=== PATIENT | female | born 1990 | race Two or more races ===

== ENCOUNTER 2019-11-09 21:27 | Emergency (ER) | payer SELFPAY ==
[~2019-11-09] VITALS: Ht 165.1 cm; Wt 70.0 kg
[~2019-11-09 21:27] MED LIST: PNV1TABL25 PO
--- NOTE | 2019-11-09 21:57 | PHYS DOC ---
Past Medical History Past Medical History: No Pertinent History Smoking Status: Unknown if ever smoked Alcohol Use: None Adult General Chief Complaint Chief Complaint: FLU SYMPTOM HPI HPI Patient is a 29 year old Georgian-speaking female who presents to the ER with complaint of left sided abdominal pain that is mostly in the upper quadrant that has been ongoing intermittently since Friday and is currently rated 8/10. Her pain is worse with sitting. No nausea vomiting diarrhea or constipation. She reports fevers and body aches otherwise. No sick contacts, recent travel, exposure to anyone with coronavirus. No history of intra- abdominal problems. Last menstrual cycle was approximately 3 weeks ago. Review of Systems Review of Systems All other systems were reviewed and found to be within normal limits, except as documented in this note. Current Medications Current Medications Current Medications Medications (Trade) Dose Ordered Sig/David Start Time Stop Time Status Last Admin Dose Admin Ceftriaxone Sodium (Rocephin) 1 gm 1X ONCE 11/09/19 22:30 11/09/19 22:31 DC 11/09/19 22:26 1 GM Ciprofloxacin (Cipro) 500 mg 1X ONCE 11/09/19 23:00 11/09/19 23:01 UNV Fentanyl Citrate (Fentanyl 2ml Vial) 50 mcg 1X ONCE 11/09/19 22:15 11/09/19 22:16 DC 11/09/19 22:15 50 MCG Ondansetron HCl (Zofran) 4 mg 1X ONCE 11/09/19 22:15 11/09/19 22:16 DC 11/09/19 22:10 4 MG Sodium Chloride 1,000 ml @ 1,000 mls/hr 1X ONCE 11/09/19 23:00 11/09/19 23:59 UNV Allergies Allergies Allergies Coded Allergies Type Severity Reaction Last Updated Verified No Known Drug Allergies 07/14/16 No Physical Exam Physical Exam Constitutional: Well developed, well nourished, appears to not feel well, non- toxic appearance. [] HENT: Normocephalic, atraumatic, bilateral external ears normal, oropharynx moist, no oral exudates, nose normal. [] Eyes: PERRLA, EOMI, conjunctiva normal, no discharge. [] Neck: Normal range of motion, no tenderness, supple, no stridor. [] Cardiovascular:Heart rate regular rhythm, no murmur [] Lungs & Thorax: Bilateral breath sounds clear to auscultation [] Abdomen: Bowel sounds normal, soft, LUQ TTP, no masses, no pulsatile masses. [] Skin: Warm, dry, no erythema, no rash. [] Back: No tenderness, no CVA tenderness. [] Extremities: No tenderness, no cyanosis, no clubbing, ROM intact, no edema. [] Neurologic: Alert and oriented X 3, normal motor function, normal sensory function, no focal deficits noted. [] Psychologic: Affect normal, judgement normal, mood normal. [] Current Patient Data Vital Signs Vital Signs Date Time Temp Pulse Resp B/P (MAP) Pulse Ox O2 Delivery O2 Flow Rate FiO2 11/09/19 22:36 100.0 104 18 138/68 (91) 98 100.0 11/09/19 22:15 Room Air Lab Values Laboratory Tests Test 11/09/19 21:55 11/09/19 22:00 Urine Collection Type Void Urine Color Chrissie Urine Clarity Cloudy Urine pH 6.0 (<5.0-8.0) Urine Specific [place] 1.025 (1.000-1.030) Urine Protein 100 mg/dL (NEG-TRACE) Urine Glucose (UA) Negative mg/dL (NEG) Urine Ketones (Stick) 40 mg/dL (NEG) Urine Blood Large (NEG) Urine Nitrite Positive (NEG) Urine Bilirubin Small (NEG) Urine Urobilinogen Dipstick 1.0 mg/dL (0.2 mg/dL) Urine Leukocyte Esterase Moderate (NEG) Urine RBC 1-2 /HPF (0-2) Urine WBC 20-40 /HPF (0-4) Urine Squamous Epithelial Cells Mod /LPF Urine Bacteria Many /HPF (0-FEW) Urine Mucus Marked /LPF Influenza Type A Antigen Negative (NEGATIVE) Influenza Type B Antigen Negative (NEGATIVE) White Blood Count 14.7 x10^3/uL (4.0-11.0) H Red Blood Count 4.29 x10^6/uL (3.50-5.40) Hemoglobin 14.2 g/dL (12.0-15.5) Hematocrit 40.2 % (36.0-47.0) Mean Corpuscular Volume 94 fL (79-100) Mean Corpuscular Hemoglobin 33 pg (25-35) Mean Corpuscular Hemoglobin Concent 35 g/dL (31-37) Red Cell Distribution Width 14.3 % (11.5-14.5) Platelet Count 259 x10^3/uL (140-400) Neutrophils (%) (Auto) 88 % (31-73) H Lymphocytes (%) (Auto) 5 % (24-48) L Monocytes (%) (Auto) 8 % (0-9) Eosinophils (%) (Auto) 0 % (0-3) Basophils (%) (Auto) 0 % (0-3) Neutrophils # (Auto) 12.9 x10^3/uL (1.8-7.7) H Lymphocytes # (Auto) 0.7 x10^3/uL (1.0-4.8) L Monocytes # (Auto) 1.1 x10^3/uL (0.0-1.1) Eosinophils # (Auto) 0.0 x10^3/uL (0.0-0.7) Basophils # (Auto) 0.0 x10^3/uL (0.0-0.2) Segmented Neutrophils % 83 % (35-66) H Band Neutrophils % 6 % (0-9) Lymphocytes % 6 % (24-48) L Monocytes % 4 % (0-10) Eosinophils % 1 % (0-5) Platelet Estimate Adequate (ADEQUATE) POC Urine HCG, Qualitative Hcg negative (Negative) Sodium Level 138 mmol/L (136-145) Potassium Level 3.5 mmol/L (3.5-5.1) Chloride Level 102 mmol/L (98-107) Carbon Dioxide Level 25 mmol/L (21-32) Anion Gap 11 (6-14) Blood Urea Nitrogen 8 mg/dL (7-20) Creatinine 0.8 mg/dL (0.6-1.0) Estimated GFR (Cockcroft-Gault) 83.7 BUN/Creatinine Ratio 10 (6-20) Glucose Level 114 mg/dL (70-99) H Calcium Level 9.2 mg/dL (8.5-10.1) Total Bilirubin Pending Aspartate Amino Transferase (AST) Pending Alanine Aminotransferase (ALT) Pending Alkaline Phosphatase Pending Total Protein Pending Albumin Pending Albumin/Globulin Ratio Pending Lipase Pending Laboratory Tests 11/09/19 22:00 Laboratory Tests 11/09/19 22:00 EKG EKG [] Radiology/Procedures Radiology/Procedures [] Course & Med Decision Making Course & Med Decision Making Pertinent Labs and Imaging studies reviewed. (See chart for details) This patient is seen for left upper quadrant abdominal pain with fever. Also some flulike symptoms. We will place an IV give IV fluids check labs and abdominal x-ray. Will also check for influenza. 2254: Patient's work-up reveals what appears to be pyelonephritis. She will given a total of 2 L of fluid, 1 g of Rocephin, and 500 mg of oral ciprofloxacin. The patient's renal function is normal so she will be discharged home with a prescription for Bactrim and ciprofloxacin. She is instructed to return to the ER in 48 hours if her symptoms are not improving. An photogeologist was used during my interaction with this patient and the patient voiced understanding. Naomy Disclaimer Naomy Disclaimer This electronic medical record was generated, in whole or in part, using a voice recognition dictation system. Departure Departure Impression: Primary Impression: Pyelonephritis Disposition: HOME, SELF-CARE Condition: IMPROVED Referrals: NO PCP (PCP) Patient Instructions: Pyelonephritis, Adult Additional Instructions: You may use tylenol and ibuprofen for fever and body aches. Scripts Ciprofloxacin Hcl (CIPROFLOXACIN HCL) 500 Mg Tablet 1 TAB PO BID, #20 TAB Prov: SANG WHITE DO 11/09/19 Sulfamethoxazole/Trimethoprim (BACTRIM DS TABLET) 1 Each Tablet 1 TAB PO BID for infection for 10 Days, #20 TAB Prov: SANG WHITE DO 11/09/19 SANG WHITE DO Nov 09, 2019 21:57
[2019-11-09 22:07] LABS: BILIRUBIN,URINE SMALL (NEG); CLARITY,URINE CLOUDY; COLOR,URINE AMBER; NITRITE,URINE POSITIVE (NEG); PROTEIN,URINE 100 mg/dL (NEG-TRACE)
[2019-11-09 22:14] LABS: BACTERIA,URINE MANY /HPF (0-FEW); SQUAMOUS EPITHELIAL CELL,UR MOD /LPF; WBC,URINE 20-40 /HPF (0-4)
[2019-11-09 22:15] LABS: BASO % 0 % (0-3); EOS % 0 % (0-3); HEMATOCRIT 40.2 % (36.0-47.0); HEMOGLOBIN 14.2 g/dL (12.0-15.5); LYMPH # 0.7 x10^3/uL (1.0-4.8); LYMPH % 5 % (24-48); MEAN CORPUSCULAR HEMOGLOBIN 33 pg (25-35); MEAN CORPUSCULAR HGB CONC 35 g/dL (31-37); MEAN CORPUSCULAR VOLUME 94 fL (79-100); MONO # 1.1 x10^3/uL (0.0-1.1); MONO % 8 % (0-9); NEUT # 12.9 x10^3/uL (1.8-7.7); NEUT % 88 % (31-73); PLATELET COUNT 259 x10^3/uL (140-400); RED BLOOD COUNT 4.29 x10^6/uL (3.50-5.40); RED CELL DISTRIBUTION WIDTH 14.3 % (11.5-14.5); WHITE BLOOD COUNT 14.7 x10^3/uL (4.0-11.0)
[2019-11-09] MEDS ORDERED: ONDANSETRON PF 4 MG/2 ML VIAL. IVP ONE (22:15)
[2019-11-09] MEDS ORDERED: fentaNYL PF VIAL 100 MCG/2 ML VIAL IVP ONE (22:15)
[2019-11-09] MEDS ORDERED: IV NORMAL SALINE 1000ML BAG 1,000 ML IV ONE ×2 (22:15→23:00)
[2019-11-09 22:20] LABS: INFLUENZA A PATIENT NEGATIVE (NEGATIVE); INFLUENZA B PATIENT NEGATIVE (NEGATIVE)
[2019-11-09] MEDS ORDERED: cefTRIAXone IV Push 1 GM VIAL. IVP ONE (22:30)
[2019-11-09 22:36] LABS: % BANDS 6 % (0-9); % EOS 1 % (0-5); % LYMPHS 6 % (24-48); % MONOS 4 % (0-10); % SEGS 83 % (35-66); PLT ESTIMATE ADEQUATE (ADEQUATE)
[2019-11-09 22:38] LABS: CALCIUM 9.2 mg/dL (8.5-10.1); CREATININE 0.8 mg/dL (0.6-1.0); GFR 83.7; POTASSIUM 3.5 mmol/L (3.5-5.1)
--- NOTE | 2019-11-09 22:42 | RAD ---
Abdominal Series dated 11/09/2019. No comparison available. Clinical Indication: Abdominal pain. Findings: Single upright PA view the chest shows normal heart and mediastinal contours. The lungs are clear without focal consolidation. Vascular interstitium is within normal limits. Flat and upright views of the abdomen show nondilated gas filled loops of bowel. No air-fluid level on the upright view. No abnormal calcifications are identified. There is no evidence of pneumoperitoneum. Moderate amount stool throughout the colon. Impression chest: No acute radiographic abnormality. Impression abdomen: Non-obstructive bowel gas pattern. Electronically signed by: Mendoza Jones MD (11/09/2019 10:39 PM) [id number]
[2019-11-09 22:56] LABS: ALBUMIN 3.6 g/dL (3.4-5.0); ALBUMIN/GLOBULIN RATIO 0.7 (1.0-1.7); TOTAL BILIRUBIN 0.7 mg/dL (0.2-1.0); TOTAL PROTEIN 8.5 g/dL (6.4-8.2)
[2019-11-09] MEDS ORDERED: SULF1TAB24 PO (22:57)
[2019-11-09] MEDS ORDERED: CIPR500T PO (22:57)
[2019-11-09] MEDS ORDERED: CIPROFLOXACIN HCL 250 MG TABLET. PO ONE (23:00)
[2019-11-10 00:05] VITALS: BP 114/68
== END 2019-11-10 00:10 | disposition home or self-care (01) ==
LOC: ER 21:27
DX: N12 Tubulo-interstitial nephritis, not specified as acute or chronic (principal)
CPT/HCPCS: 36415; 74022; 80053; 81001; 81025; 83690; 85007; 85025; 87086; 87804; 96374; 96375; 99285; J0696; J2405; J3010; J7030

== ENCOUNTER 2021-05-06 08:42 | Emergency (ER) | payer SELFPAY ==
[~2021-05-06] VITALS: Ht 152.4 cm; Wt 50.0 kg
[~2021-05-06 08:42] MED LIST changes: +CIPR500T2 PO; +SULF1TAB24 PO
[2021-05-06 08:50] VITALS: BP 124/77
--- NOTE | 2021-05-06 09:43 | PHYS DOC ---
Past Medical History Past Medical History: No Pertinent History Past Surgical History: No Surgical History Smoking Status: Never Smoker Alcohol Use: None General Adult EDM: Chief Complaint: VAGINAL BLEEDING HPI: HPI: Patient is a 31 year old Rh+ female at approximately 12 weeks 0 days gestational age by LMP (02/11/2021) who presents with vaginal bleeding/spotting since yesterday. She is following with the [facility] [place] [facility]. Has not had ultrasound confirmation of IUP for this . She has had 2 uneventful previous pregnancies. No issues with this so far. She has noticed bleeding just when she wipes after urination. She is not spontaneously bleeding in between. She has not passed any clots. She has had no pain or cramping. She did notice that she had some yellow discharge on and Friday, but has not had any since. No dysuria, urgency, frequency. Review of Systems: Review of Systems: Constitutional: Denies fever or chills. [] Eyes: Denies change in visual acuity. [] HENT: Denies nasal congestion or sore throat. [] Respiratory: Denies cough or shortness of breath. [] Cardiovascular: Denies chest pain or edema. [] GI: Denies abdominal pain, nausea, vomiting, bloody stools or diarrhea. [] : Denies dysuria. Reports vaginal bleeding and now resolved vaginal discharge. [] Musculoskeletal: Denies back pain or joint pain. [] Integument: Denies rash. [] Neurologic: Denies headache, focal weakness or sensory changes. [] Endocrine: Denies polyuria or polydipsia. [] Lymphatic: Denies swollen glands. [] Psychiatric: Denies depression or anxiety. [] Heart Score: C/O Chest Pain: No Risk Factors: Risk Factors: DM, Current or recent (<one month) smoker, HTN, HLP, family history of CAD, obesity. Risk Scores: Score 0 - 3: 2.5% MACE over next 6 weeks - Discharge Home Score 4 - 6: 20.3% MACE over next 6 weeks - Admit for Clinical Observation Score 7 - 10: 72.7% MACE over next 6 weeks - Early Invasive Strategies Allergies: Allergies: Allergies Coded Allergies Type Severity Reaction Last Updated Verified No Known Drug Allergies 07/14/16 No Physical Exam: PE: Constitutional: Well developed, well nourished, no acute distress, non-toxic appearance. [] HENT: Normocephalic, atraumatic, [] Neck: supple, no stridor. [] Cardiovascular:Heart rate regular rhythm, no murmur [] Lungs & Thorax: Bilateral breath sounds clear to auscultation [] Abdomen: Soft. Nontender. [] Skin: Warm, dry, no erythema, no rash. [] Back: No tenderness, no CVA tenderness. [] Extremities: No tenderness, no cyanosis, no clubbing, ROM intact, no edema. [] Neurologic: Alert and oriented X 3, normal motor function, normal sensory function, no focal deficits noted. [] Psychologic: Affect normal, judgement normal, mood normal. [] Current Patient Data: Labs: Laboratory Tests Test 05/06/21 09:07 POC Urine HCG, Qualitative Hcg positive (Negative) Vital Signs: Vital Signs Date Time Temp Pulse Resp B/P (MAP) Pulse Ox O2 Delivery O2 Flow Rate FiO2 05/06/21 08:50 98.6 75 18 124/77 (93) 100 Room Air 98.6 EKG: EKG: [] Radiology/Procedures: Radiology/Procedures: [] Impression: [facility] [address] [place], [place] [id number] IMAGING REPORT Signed PATIENT: ROSEY HARDINGCCOUNT: [id number] : 1990 LOCATION: ER AGE: 31 SEX: F EXAM STATUS: REG ER ORD. PHYSICIAN: IVELISSE PORTER MD REASON: 1st trim bleeding; Blood when wiping-12 wks preg;LMP 02-11-21 PROCEDURE: OB < 14 WKS First trimester ultrasound less than 14 weeks: INDICATIONS: First trimester bleeding. COMPARISON: None available. Findings: Transabdominal study: Number of fetuses: Single. Average crown-rump length: 1.87 cm which corresponds to an approximate gestational age of 8 weeks and 3 days. EDC is December 13, 2021 Gestational age patient on an LMP of February 11, 2021 is 12 weeks and 0 days with an EDC November 18, 2021. Therefore, there is a discrepancy of approximately 4 weeks. Sac shape and amniotic fluid volume: Normal. heart rate: 0 beats per minute Placenta location: Indeterminate due to the early stage of gestation. Cervical length: Greater than 3 cm. Extrachorionic hemorrhage: None. Uterus: Small posterior uterine fibroid measuring 14 mm. Maternal ovaries: Right ovary: 3.3 cm x 1.5 cm x 2 cm. Normal. Color-flow Doppler: present Left ovary: 3.6 cm x 1.6 cm x 2.1 cm. Normal. Color-flow Doppler: present. Adnexa: no adnexal masses are seen. Free fluid: None. Impression: Sonographic findings are consistent with demise of a single IUP with gestational age by ultrasound of 8 weeks 3 days. Clinical age should be approximately 12 weeks. Electronically signed by: Reno Carpenter MD (05/06/2021 11:04 AM) [id number] DICTATED and SIGNED BY: RENO CARPENTER MD DATE: 05/06/21 [id number] 0 Course & Med Decision Making: Course & Med Decision Making Pertinent Labs and Imaging studies reviewed. (See chart for details) Patient is 31-year-old female at 12 weeks 0 days gestational age by LMP (02/11/2021) who presents with vaginal spotting/bleeding starting yesterday. Fortunately no clots, cramping, or abdominal pain. Bleeding has been limited to slight spotting with wiping. She is certain that she is blood type O+. No need for RhoGam. With only slight bleeding do not feel that she requires a CBC. We will obtain pelvic ultrasound to evaluate the wellbeing as well as for source of bleeding such as placenta previa. Deferred pelvic examination until after ultrasound. 09 Ultrasound consistent with demise/miscarriage. pole was small for dates and no detectable heart rate was found. These findings were communicated to the patient. A beta hCG quantitative blood test was drawn to facilitate potential follow-up lab testing. Patient would prefer to follow-up with [facility]. I will give her a phone number to call tomorrow morning to set up a follow-up appointment. [id number] Naomy Disclaimer: Naomy Disclaimer: This electronic medical record was generated, in whole or in part, using a voice recognition dictation system. Departure Departure Impression: Primary Impression: Miscarriage Referrals: NO PCP (PCP) RHONDA VANG MD Call Dr. Vang's office first thing tomorrow morning to schedule a follow-up appointment. Patient Instructions: Miscarriage Additional Instructions: Please return to the emergency department if you have severely brisk bleeding, uncontrollable pain, feel lightheaded or like you are going to pass out, or if you have chest pain or shortness of breath. IVELISSE PORTER MD May 06, 2021 09:43
--- NOTE | 2021-05-06 11:07 | RAD ---
First trimester ultrasound less than 14 weeks: INDICATIONS: First trimester bleeding. COMPARISON: None available. Findings: Transabdominal study: Number of fetuses: Single. Average crown-rump length: 1.87 cm which corresponds to an approximate gestational age of 8 weeks and 3 days. EDC is December 13, 2021 Gestational age patient on an LMP of February 11, 2021 is 12 weeks and 0 days with an EDC November 18, 2021. Therefore, there is a discrepancy of approximately 4 weeks. Sac shape and amniotic fluid volume: Normal. heart rate: 0 beats per minute Placenta location: Indeterminate due to the early stage of gestation. Cervical length: Greater than 3 cm. Extrachorionic hemorrhage: None. Uterus: Small posterior uterine fibroid measuring 14 mm. Maternal ovaries: Right ovary: 3.3 cm x 1.5 cm x 2 cm. Normal. Color-flow Doppler: present Left ovary: 3.6 cm x 1.6 cm x 2.1 cm. Normal. Color-flow Doppler: present. Adnexa: no adnexal masses are seen. Free fluid: None. Impression: Sonographic findings are consistent with demise of a single IUP with gestational ag e by ultrasound of 8 weeks 3 days. Clinical age should be approximately 12 weeks. Electronically signed by: Reno Carpenter MD (05/06/2021 11:04 AM) [id number]
== END 2021-05-06 12:06 | disposition home or self-care (01) ==
LOC: ER 08:42
DX: O03.9 Complete or unspecified spontaneous abortion without complication (principal); Z3A.08 8 weeks gestation of pregnancy
CPT/HCPCS: 36415; 76801; 81025; 84702; 99284